=== PATIENT | female | born 1970 | race Caucasian/White ===

== ENCOUNTER 2019-11-01 23:01 | Inpatient (IN) | payer MEDICAID ==
[~2019-11-01] VITALS: Ht 162.6 cm; Wt 113.9 kg
--- NOTE | ~2019-11-01 | ST ---
PATIENT:RENALDO MOTA MEDICAL RECORD: [id number] SEX: F LOCATION:D. D.211 ORDER #: ADMISSION DATE: 11/02/19 AGE OF PATIENT: 49 REFERRING PHYSICIAN: INTERPRETING PHYSICIAN: ROCHELLE MARKHAM MD DATE OF SERVICE: 11/02/2019 LEXISCAN DIRECTED NUCLEAR STRESS TEST PROCEDURE IN DETAIL: The patient was brought into the nuclear stress lab in a stable condition, placed in supine position on the nuclear stress table. The patient had Lexiscan administered per standard protocol. The patient tolerated the procedure without significant side effects. The patient did have 3/10 chest tightness and there was ST segment depressions on the EKG laterally. FINDINGS: The patient had anterior artifact likely secondary to breast attenuation; however, the patient also demonstrated possibility of anterior apical ischemia, mild in intensity and moderate in distribution. The patient's overall ejection fraction was 69%. There is no wall motion abnormalities. IMPRESSION: This is an abnormal stress test. Cannot exclude breast attenuation artifact as an explanation for the ischemia; however, ischemia cannot be excluded. RECOMMENDATIONS: It would be reasonable to go forward with catheter-directed angiography depending on clinical situation. TRANSINT:[id number] Voice Confirmation ID: [id number] DOCUMENT ID: [id number] ROCHELLE MARKHAM MD CC: [id number] DICTATION DATE: 11/02/191910 NOTCHED BLADE LOADER: 11/02/192328 ADM IN [facility] [address] [place] [address]
--- NOTE | ~2019-11-01 | EC ---
PATIENT:RENALDO MOTA DATE OF SERVICE: 11/02/19 SEX: F MEDICAL RECORD: [id number] DATE OF : 74 LOCATION:D. D.211 AGE OF PATIENT: 49 ADMISSION DATE: 11/02/19 REFERRING PHYSICIAN: INTERPRETING PHYSICIAN: ROCHELLE MARKHAM MD ECHOCARDIOGRAM REPORT ECHO CHARGES 4 ECHO COMPLETE Date: 11/02/19 CLINICAL DIAGNOSIS: CP ECHOCARDIOGRAPHIC MEASUREMENTS (adult normal given) AC root (d.<3.7cm) 2.4 cm LV Septum d (<1.2 cm> 0.9 cm Valve Excursion 1.1 cm LV Septum (systole) 1.3 cm Left Atria (s.<4.0cm> 3.2 cm LVPW d(<1.2cm) 0.9 cm RV (d.<2.3cm) 2.9 cm LVPW (sytole) 1.0 cm LV diastole(<5.6CM) 4.9 cm MV E-F(>70mm/sec) cm LV systole 3.9 cm LVOT Diameter 2.2 cm MV exc.(>10mm) cm Est.ejection fraction (50-75%) % DOPPLER: LVIT cm/sec A 63 cm/sec E 103 cm/sec LA cm/sec RVSP 21.0 mmHg LVOT 114 cm/sec AOP1/2T m/s Asc. Ao 136 cm/sec RVOT 66 cm/sec RA cm/sec PA 89 cm/sec AV Gradient Peak 7.4 mmHg AV Mean 4.5 mmHg AV Area 3.3 cm MV Gradient Peak 5.4 mmHg MV Mean 2.0 mmHg MV Area cm COMMENTS: Clinical Administrative Coordinator: Linda HAYDEN Special Diet Cook: 4 Dr. Markham TAPE# PACS Pericardial Effusion N DATE OF SERVICE: 11/02/2019 PROCEDURE: Transthoracic echocardiogram. FINDINGS: Normal left ventricular function, ejection fraction is 55%. Left atrium is normal. Aortic valve is normal. ECHOCARDIOGRAM REPORT [id number] RENALDO MOTA Mitral valve is normal. Tricuspid valve is normal. Right ventricle is normal. Right atrium is normal. Pulmonic valve is normal. TRANSINT:[id number] Voice Confirmation ID: [id number] DOCUMENT ID: [id number] ROCHELLE MARKHAM MD CC: [id number] DICTATION DATE: 11/02/191913 MEAT STRINGER: 11/02/192232 ADM IN [facility] [address] [id number]
--- NOTE | ~2019-11-01 | HEMODYNAMI ---
PATIENT:RENALDO MOTA MEDICAL RECORD: [id number] : 74 [id number] ADMISSION DATE: 11/02/19 Generatedon:11/03/201912:15 Patient name: RENALDO MOTA Patient #: [id number] SSN: [id number] : 1970 Date of study: 11/03/2019 Page: Of Hemodynamic Procedure Report Patient Data Patient Demographics Procedure consent was obtained First Name: RENALDO Gender: Female Last Name: NAKUL : 1970 Patient #: [id number] Age: 49 year(s) Race: SSN: [id number] Additional ID: [id number] Contact details Address: [address] [place] [address] State: [place] City: [facility] [place] Zip code: [address] Admission Admission Data Admission Date: 11/02/2019 Admission Time: 16:43 Admit Source: Emergency Insurance Payor: Medicaid department [facility] #: [id number] Room #: D.2114 Lab Results Lab Result Date: 11/03/2019 Lab Result Time: 4:25 Biochemistry Name Units Result Min Max BUN mg/dl 8 --(*---)-- 7 18 Creatinine mg/dl 0.7 --(*---)-- 0.6 1.3 CBC Name Units Result Min Max Hematocrit % 55.3 --(----)*- 42 54 Hemoglobin g/dl 19 --(----)-* 13.5 17.5 Procedure Procedure Types Cath Procedure Diagnostic Procedure LHC LHC w/Coronaries Procedure Description Procedure Date Procedure Date: 11/03/2019 Procedure Start Time: 12:04 Procedure End Time: 12:13 Procedure Staff Name Function Juan R Lee MD Performing Physician Karma Coreas RT Scrub Dami Soares RT Monitor Bryanna Mo RN Nurse Indication Abnormal stress perfusion study Procedure Data Cath Procedure Fluoroscopy Diagnostic fluoroscopy Total fluoroscopy Time: 1 time: 1 min min Diagnostic fluoroscopy Total fluoroscopy dose: 411 dose: 411 mGy mGy Contrast Material Contrast Material Type Amount (ml) Isovue 300 47 Entry Location Entry Primary Successful Side Size Upsize Upsize Entry Closure Succes sful Closure Location (Fr) 1 (Fr) 2 (Fr) Remarks Device Remarks Femoral Right 5 Fr Exoseal artery Estimated blood loss: 5 ml Diagnostic catheters Device Type Used For End Catheter Placement MULTIPACK JL 4.0 5Fr Procedure catheter MULTIPACK 3DRC 5Fr Procedure catheter MULTIPACK Pigtail 5 Fr Procedure catheter Procedure Complications No complications Procedure Medications Medication Administration Route Dosage Oxygen etCO2 Nasal cannula 2 l/min Lidocaine 2% added to field 20 Heparin Flush Bag added to field 2 bags (1000units/500ml NS) 0.9% NaCl I.V. 100 ml/hr Versed I.V. 2 mg Fentanyl I.V. 100 mcg Versed I.V. 1 mg Fentanyl I.V. 100 mcg Hemodynamics Rest HGB: 19 (g/dl) Heart Rate: 78 (bpm) Pressure Samples Time Site Value (mmHg) Purpose Heart Use Rate(bpm) 12:06 AO 119/44(79) Snapshot 78 12:09 LV 113/27,30 Snapshot 80 12:09 AO 98/51(65) Pullback 80 Gradients Valve Time Site Site 2 Mean SEP/DFP Peak To Heart Use 1 (mmHg) (sec/min) Peak Rate (mmHg) (bpm) Aortic 12:09 LV AO 10 19 80 98/51(65) Calculations Valve P-P Mean Valve Index Valve Source Name Gradient Area Flow (cm2) Aortic 10 10 Snapshots Pre Cath Intra NCS Post Cath Vital Signs Time Heart Resp SPO2 etCO2 NIBP (mmHg) Rhythm Pain Sedation Rate (ipm) (%) (mmHg) Status Level (bpm) 11:59:20 69 12 94 15 120/62(88) NSR 0 (11) 10(A) , No pain 12:04:29 80 15 98 47.5 115/82(106) NSR 0 (11) 10(A) , No pain 12:09:28 81 13 93 14.3 91/55(82) NSR 0 (11) 9(A) , No pain 12:14:17 73 15 89 15.8 116/66(87) NSR 0 (11) 9(A) , No pain Medications Time Medication Route Dose Verified Delivered Reason Notes Eff ectiveness by by 11:58:36 Oxygen etCO2 2 Juan R Buffie used for Nasal l/min [facility] Nasir Mo hydrogen power plant engineer cannula MD 11:58:42 Lidocaine 2% added 20ml Juan R Juan R for local to vial [facility] anesthetic field MD COLLINS 11:58:47 Heparin Flush added 2 Juan R Juan R used for Bag to bags [facility] procedure (1000units/500ml field MD COLLINS NS) 11:58:56 0.9% NaCl I.V. 100 Juan R Buffie Per ml/hr St Nasir Mo RN physician 12:04:06 Versed I.V. 2 mg Juan R Buffie for [facility] Nasir Mo RN sedation 12:04:12 Fentanyl I.V. 100 Juan R Buffie for mcg [facility] Nasir Mo RN sedation 12:07:09 Versed I.V. 1 mg Juan R Buffie for [facility] Nasir Mo RN sedation 12:07:13 Fentanyl I.V. 100 Juan R Buffie for mcg [facility] Nasir Mo RN sedation Procedure Log Time Note 11:22:22 Informed consent obtained and on chart 11:23:02 Procedure Status Urgent Heart Cath (IP). 11:23:04 Time tracking: Regular hours (M-F 7:00 - 5:00) 11:23:07 Plan of Care:Hemodynamics will remain stable., Cardiac rhythm will remain stable., Comfort level will be maintained., Respiratory function will remain adequate., Patient/ family verbilizes understanding of procedure., Procedure tolerated without complication., Recovers from procedure without complications.. 11:23:11 H&P Date Dictated: 11/03/2019 ER History on chart.. 11:36:14 Karma Coreas RT(R) sent for patient. Start room use. 11:47:29 Patient received from Med II to CCL 1 Alert and oriented. Tansferred to table in Supine position. 11:47:30 Warm blankets applied, and connie hugger turned on for patient comfort. 11:47:31 Correct patient and procedure confirmed by team. 11:47:31 ECG and BP/O2 sat monitors applied to patient. 11:58:08 Vital chart was started 11:58:12 Baseline sample Acquired. 11:58:16 Rhythm: sinus rhythm 11:58:18 Full Disclosure recording started 11:58:19 Pre-procedure instructions explained to patient. 11:58:19 Pre-op teaching completed and patient verbalized understanding. 11:58:21 Family unavailable. 11:58:23 Patient NPO since Midnight. 11:58:34 Is the patient allergic to Iodine/contrast media? No. 11:58:36 Oxygen 2 l/min etCO2 Nasal cannula was administered by Bryanna Mo RN; used for procedure; Verbal order read back and verified. 11:58:39 Is patient on blood thinner?No 11:58:41 Patient diabetic? Yes. 11:58:42 Lidocaine 2% 20ml vial added to field was administered by Juan R Lee MD; for local anesthetic; Verbal order read back and verified. 11:58:42 If diabetic: On Metformin? Yes 11:58:47 Heparin Flush Bag (1000units/500ml NS) 2 bags added to field was administered by Juan R Lee MD; used for procedure; Verbal order read back and verified. 11:58:56 0.9% NaCl 100 ml/hr I.V. was administered by Bryanna Mo RN; Per physician; Verbal order read back and verified. 11:59:09 Patient not . Patient has had hysterectomy. 11:59:16 Previous problem with sedation/anesthesia? No ? 11:59:29 Snore? Yes 11:59:39 Sleep apnea? Yes 11:59:40 Deviated septum? No 11:59:41 Opens mouth fully? Yes 11:59:42 Sticks out tongue? Yes 11:59:48 Airway obstruction? Yes asthma 11:59:55 Dentures? No \ 11:59:58 Pre procedure: right dorsailis pedis pulse 2+ Normal; easily identifiable; not easily obliterated 12:00:00 Patient pain scale 3/10 ?. 12:00:04 IV patent on arrival in right forearm with 0.9% NaCl at [facility]. 12:00:48 Lab Result : BUN 8 mg/dl 12:00:48 Lab Result : Creatinine 0.7 mg/dl 12:00:48 Lab Result : Hemoglobin 19 g/dl 12:00:49 Lab Result : Hematocrit 55.3 % 12:00:54 Lab results completed and on chart. 12:01:27 Stress Test: yes; abnormal ? 12:03:36 Risk of Mortality: 1.5% 12:03:40 Risk of blood transfusion: 2.3% 12:03:45 Risk of LEIDY: 3.1% 12:03:49 Right groin area was prepped with chlora-prep and draped in sterile fashion 12:03:49 Alarms reviewed by R. N. 12:03:50 Sharps counted by scrub and verified by R.N. 12:03:52 Physician arrived 12:03:53 --------ALL STOP TIME OUT------ 12:03:53 Final Timeout: patient, procedure, and site verified with staff and physician. All members of the team are in agreement. 12:03:54 Right groin site verified by team. 12:03:58 Fire Safety Assessment: A--An alcohol-based skin anteseptic being used preoperatively., C--Open oxygen or nitrous oxide is being used., D--An ESU, laser, or fiber-optic light is being used. 12:04:01 Physical assessment completed. ASA score P 2 - A patient with mild systemic disease as per Juan R Lee MD. 12:04:06 Versed 2 mg I.V. was administered by Bryanna Mo RN; for sedation; Verbal order read back and verified. 12:04:08 1) 90+ Normal kidney functon but urine findings or structural abnormalities or genetic trait point to kidney disease. 12:04:10 Maximum allowable contrast dose (3.7 X eGFR X 0.75)250 ml. 12:04:12 Fentanyl 100 mcg I.V. was administered by Bryanna Mo RN; for sedation; Verbal order read back and verified. 12:04:12 Sedation plan: IV Moderate Sedation Medication:Versed, Fentanyl 12:04:15 Use device set Femoral Dx 12:04:16 ACIST Syringe (77205) opened to sterile field. 12:04:16 Bag Decanter () opened to sterile field. 12:04:16 Medline Cath Pack ([id number]) opened to sterile field. 12:04:18 ACIST Hand Control (90986) opened to sterile field. 12:04:18 ACIST Manifold (71249) opened to sterile field. 12:04:19 DIAGNOSTIC Multipack 5Fr catheter set (ZV5221) opened to sterile field. 12:04:19 Tegaderm 4 x 4 (1626W) opened to sterile field. 12:04:21 EMERALD Guide Wire (832-367) opened to sterile field. 12:04:24 SHEATH 5FR Isle (YER938) opened to sterile field. 12:04:34 Procedure started. 12:04:36 Local anesthetic to right femoral artery with Lidocaine 2% by Juan R Lee MD.INITIAL ACCESS ONLY 12:04:46 A 5 Fr sheath was inserted into the Right Femoral artery 12:05:15 Admit Source: Emergency department 12:05:19 Zero performed for pressure channel P1 12:05:37 Insurance Payor : Medicaid 12:05:59 Diagnostic Cath Status : Urgent 12:06:06 Indication : Abnormal stress perfusion study 12:06:25 A MULTIPACK JL 4.0 5Fr catheter was advanced over the wire and used for Procedure. 12:06:26 LV hemodynamics recorded. 12:06:29 LCA angiography performed. 12:07:09 Versed 1 mg I.V. was administered by Bryanna Mo RN; for sedation; Verbal order read back and verified. 12:07:13 Fentanyl 100 mcg I.V. was administered by Bryanna Mo RN; for sedation; Verbal order read back and verified. 12:07:16 Catheter exchanged over wire. 12:07:24 A MULTIPACK 3DRC 5Fr catheter was advanced over the wire and used for Procedure. 12:08:07 RCA angiography performed. 12:08:09 Catheter exchanged over wire. 12:08:13 A MULTIPACK Pigtail 5 Fr catheter was advanced over the wire and used for Procedure. 12:08:59 EXOSEAL 5Fr (EX500) opened to sterile field. 12:09:27 Injector settings: Ml/sec: 10, Volume: 20, 12:09:31 EF : 55 % 12:09:33 LV gram done using DREW 12:09:34 Catheter removed. 12:09:41 Sheath removed intact; hemostasis achieved with Exoseal to the Right Femoral artery. 12:09:42 Procedure ended.(Physican Out) 12:11:47 Fluoroscopy time 01.00 minutes. 12:11:51 Fluoroscopy dose: 411 mGy 12:11:51 Flurop Dose total: 411 12:11:59 Dose Area Product 94764 mGy/cm. 12:12:03 Contrast amount:Isovue 300 47ml. 12:12:05 Maximum allowable dose exceeded? No. 12:12:06 Sharps counted by scrub and verified by R.N. 12:12:07 Insertion/operative site no bleeding no hematoma. 12:12:10 Post-op/insertion site Right Femoral artery dressed using a 4 x 4 and Tegaderm. 12:12:14 Post right femoral artery:stable, soft, clean and dry 12:12:16 Post Procedure Pulses reassessed and unchanged 12:12:18 Post procedure: right dorsailis pedis pulse 2+ Normal; easily identifiable; not easily obliterated. 12:12:20 Post-procedure physical assessment completed. ASA score P 2 - A patient with mild systemic disease as per Juan R Lee MD. 12:12:22 Post procedure rhythm: unchanged. 12:12:24 Estimated blood loss: 5 ml 12:12:25 Post procedure instruction explained to patient.Patient verbalizes understanding. 12:12:25 Patient needs reinforcement of post procedure teaching. 12:12:57 Procedure and supply charges have been captured, reviewed, submitted and are correct. 12:12:58 Procedure Complication : No complications 12:13:01 Vital chart was stopped 12:13:07 Operative report dictated upon procedure completion. 12:13:08 See physician's report for complete and final results. 12:13:12 Report given to PCU. 12:13:13 Patient transfered to PCU with Stretcher. 12:13:15 Procedure ended. 12:13:15 Full Disclosure recording stopped 12:13:20 End room use (Document Last) 12:14:50 Karma Coreas RT(R) was relieved by Dami Soares RT(R) as monitoring person Device Usage Item Name Manufacture Quantity Catalog Hospital Part Current Minimal L ot# / Number Charge Number Stock Stock Serial# Code ACIST Acist 1 91005 [id number] 576696 667519 20 Syringe Medical (44870) Systems Inc Bag Microtek 1 2001S 107347 47167 802466 5 Decanter Medical Inc. () Medline Medline 1 [id number] 093186 65599 533632 5 Cath Pack ([id number]) ACIST Hand Acist 1 12871 244727 034306 221590 5 Control Medical (50359) Systems Inc ACIST Acist 1 39029 877212 415325 231894 5 Manifold Medical (27419) Systems Inc DIAGNOSTIC Cardinal 1 [id number] 620248 95429 166180 30 [facility] Ansible 5Fr catheter set (FD0787) Tegaderm 4 3M 1 1626W 434559 326164 299014 5 x 4 (1626W) EMERALD Cardinal 1 502-455 191441 141724 529513 5 Guide Wire Health (502-455) SHEATH 5FR Terumo 1 CNV318 024775 794860 203691 5 Isle (EBV217) MULTIPACK Cardinal 1 366865 5 JL 4.0 5Fr Health catheter MULTIPACK Cardinal 1 995090 5 3DRC 5Fr Health catheter MULTIPACK Cardinal 1 187854 5 Pigtail 5 Health Fr catheter EXOSEAL 5Fr Cardinal 1 EX500 596839 288084 210798 10 (EX500) Health Signature Audit [place] Stage Time Signature Unsigned Intra-Procedure 11/03/2019 Bryanna Mo RN 12:14:41 PM Intra-Procedure 11/03/2019 Dami Soares 12:14:59 PM RT(R); Juan R Lee MD [facility] [address] [place] [address]
[2019-11-01] MEDS ORDERED: GLUCOPHAGE1000 MG PO (23:22)
[2019-11-01] MEDS ORDERED: LIPITOR10 MG PO (23:22)
[2019-11-01] MEDS ORDERED: LISINOPRIL2.5 MG PO (23:22)
[2019-11-01] MEDS ORDERED: COREG12.5 MG PO (23:22)
[2019-11-01] MEDS ORDERED: OMEPRAZOLE20 M1 PO (23:23)
[2019-11-01] MEDS ORDERED: ALBUTEROL SULF8.5 GM INH (23:23)
[2019-11-01] MEDS ORDERED: WELLBUTRIN XL150 M1 PO (23:23)
[2019-11-01] MEDS ORDERED: IMITREX50 MG PO (23:24)
[2019-11-01 23:26] LABS: HEMOGLOBIN 13.9 g/dL (12-16); MCH 31.3 pg (26.0-34.0); MCHC 33.9 g/dL (31.0-37.0); MCV 92.3 fL (80.0-100.0); MEAN PLATELET VOLUME 10.5 fL (7.4-10.4); NEUTROPHILS 62.4 % (40-80); PLATELET COUNT 201 10x3/uL (130-400); RBC 4.44 10x6/uL (4.00-5.40); RDW 12.9 % (11.5-14.5); WBC 8.3 10x3/uL (4.8-10.8)
[2019-11-01 23:33] LABS: CALC OSMOLALITY 278 mosm/kg (275-300); CALCIUM 8.7 mg/dL (8.5-10.1); CARBON DIOXIDE 26.1 mmol/L (21.0-32.0); CHLORIDE - SERUM 103 mmol/L (98-107); GLUCOSE 202 mg/dL (74-106); POTASSIUM - SERUM 3.7 mmol/L (3.5-5.1); SODIUM 137 mmol/L (136-145); UREA NITROGEN 9 mg/dL (7-18); eGFR NON AFRICAN AMERICAN 63 mL/min (90-120)
[2019-11-01 23:34] LABS: APTT 26.1 SECONDS (22.8-39.4); INR 1.03 (0.85-1.17); PROTIME 13.5 SECONDS (11.6-15.0)
[2019-11-02 00:18] LABS: ALBUMIN 3.3 g/dL (3.4-5.0); ALKALINE PHOSPHATASE 98 U/L (30-120); ALT (SGPT) 49 U/L (10-68); AMYLASE - SERUM 27 U/L (25-115); BILIRUBIN - TOTAL 0.64 mg/dL (0.2-1.3); CKMB 0.9 U/L (0.0-3.6); CREATINE KINASE 74 UL (21-215); LIPASE 156 U/L (73-393); MAGNESIUM - SERUM 1.6 mg/dL (1.8-2.4); PROTEIN - SERUM 6.9 g/dL (6.4-8.2); TROPONIN-I < 0.017 ng/mL (0.000-0.060)
[2019-11-02 01:43] VITALS: BP 128/82
--- NOTE | 2019-11-02 02:02 | NUR ---
PT TO ROOM 2114 VIA STRETCHER ACCOMPANIED BY HOSPITAL STAFF. AMBULATED WITHOUT ASSISTANCE FROM STRETCHER TO BED.
--- NOTE | 2019-11-02 03:45 | NUR ---
ASSESSMENT COMPLETED, EKG COMPLETED, TELEMETRY PLACED. PT REQUESTING TO REMOVE NITRO PATCH ON CHEST, STATES "DR. GONZALEZ SAID THAT THE NITRO SHOULD HELP WITH THE DISCOMFORT, BUT IF IT DIDN'T TO LET YOU KNOW AND I WOULD BE ABLE TO GET MORPHINE FOR THE PAIN." EXPLAINED TO PT HOW THE NITRO PATCH WAS WORKING IN HER BODY AND THE IMPORTANCE OF IT IF SHE WAS HAVING A HEART ISSUE, VERBALIZED UNDERSTANDING. BED IN LOWEST POSITION, SR X1, CALL LIGHT WITHIN REACH. WILL CONTINUE TO MONITOR.
[2019-11-02 03:52] VITALS: BP 101/64; BMI 43.2
--- NOTE | 2019-11-02 04:30 | NUR ---
PT REQUESTING PRN MORPHINE FOR CHEST PAIN OF 8, ON A SCALE OF 0-10, STATES "IT FEELS LIKE PRESSURE ON MY CHEST AND IT RADIATES TO MY BACK, BETWEEN MY SHOULDER BLADES AND IS STABBING." THIS NURSE ATTEMPTED TO ADMINISTER PRN MORPHINE, PT STATES, "I DON'T WANT IT UNLESS I CAN GET PHENERGAN." EXPLAINED TO PT THE PHENERGAN SHE RECEIVED IN ER WAS A ONE-TIME DOSE AND WILL REPORT TO ONCOMING NURSE. BED IN LOWEST POSITION, SR X1, CALL LIGHT WITHIN REACH. WILL CONTINUE TO MONITOR.
[2019-11-02 05:25] LABS: CKMB 0.6 U/L (0.0-3.6); CREATINE KINASE 53 UL (21-215); TROPONIN-I < 0.017 ng/mL (0.000-0.060)
[2019-11-02 07:30] VITALS: BP 114/75
--- NOTE | 2019-11-02 07:45 | NUR ---
ICE PACK PROVIDED FOR COMPLAINTS OF HEADACHE. CALL PLACED TO NODULIZER REQUESTING PHENERGAN AND FSBS. AWAITING CALL BACK.
--- NOTE | 2019-11-02 08:52 | NUR ---
MEDICATED FOR NAUSEA WITH PHENERGAN IM. FSBS 163. NO COVERAGE PT IS NPO.
--- NOTE | 2019-11-02 09:44 | NUR ---
PATIENT CONTINUES TO COMPLAIN OF NAUSEA. CALL LIGHT WITHIN REACH. NO DISTRESS.
[2019-11-02 10:20] LABS: CKMB 0.6 U/L (0.0-3.6); CREATINE KINASE 54 UL (21-215)
[2019-11-02 10:21] LABS: TROPONIN-I < 0.017 ng/mL (0.000-0.060)
--- NOTE | 2019-11-02 11:56 | NUR ---
RETURNED FROM CARDIAC STRESS TEST. NO DISTRESS.
--- NOTE | 2019-11-02 12:22 | NUR ---
FSBS 185. 2 UNITS HUMULIN ADMINISTERED PER SLIDING SCALE. NO DISTRESS.
--- NOTE | 2019-11-02 13:24 | NUR ---
PATIENT CONTINUES TO COMPLAIN OF A HEADACHE AND NECK PAIN, DENIES ANY TYPE OF CHEST PAIN. AWAITING FOR TO MAKE ROUNDS ON UNIT PER THEA RANDLE.
--- NOTE | 2019-11-02 13:26 | NUR ---
PATIENT STATES THAT SHE USES MUSCLE RELAXERS AT HOME BUT HAS NOT GIVEN HER A PRESCRIPTION FOR THOSE. WILL NOTIFY WHEN HE COMES ON UNIT MUSCLE TENSION IN NECK COULD BE CAUSING NECK PAIN AND HEADACHE.
[2019-11-02 14:06] VITALS: BP 114/76
[2019-11-02 14:20] LABS: BILIRUBIN NEGATIVE (NEGATIVE); GLUCOSE 1000 mg/dL (NEGATIVE); KETONE NEGATIVE (NEGATIVE); NITRITE NEGATIVE (NEGATIVE); SPECIFIC GRAVITY 1.005 (1.005-1.020); UROBILINOGEN NORMAL (NORMAL)
[2019-11-02 14:45] LABS: UDS - AMPHET NEGATIVE QUAL (NEGATIVE); UDS - BARB NEGATIVE QUAL (NEGATIVE); UDS - BENZO NEGATIVE QUAL (NEGATIVE); UDS - COCAINE NEGATIVE QUAL (NEGATIVE); UDS - OPIATE NEGATIVE QUAL (NEGATIVE); UDS - PCP NEGATIVE QUAL (NEGATIVE); UDS - THC NEGATIVE QUAL (NEGATIVE)
--- NOTE | 2019-11-02 15:50 | NUR ---
NEW ORDER RECEIVED FOR TRAMADOL 50MG PO EVERY 6 HOURS. THIS IS WHAT PATIENT IS USED TO TAKING FOR NECK PAIN AT HOME AND PATIENT PRODUCED CURRENT BOTTLE OF MEDICATION THAT HAS PRESCRIBED FOR HER ON 10/27/19. ORDER PLACED IN COMPUTER.
--- NOTE | 2019-11-02 16:26 | NUR ---
MEDICATED FOR PAIN AT THIS TIME. NO DISTRESS.
--- NOTE | 2019-11-02 16:26 | NUR ---
FSBS 161. 2 UNITS HUMULIN ADMINISTERED PER SLIDING SCALE. NO DISTRESS.
--- NOTE | 2019-11-02 16:28 | NUR ---
NICKY FROM [facility] CALLED AND WILL COME DO A FACE TO FACE WITH THE PATIENT SINCE HE HAD HOSPICE IN THE PAST AND FAMILY WILL GATHER TOGETHER AND SIGN LEGALS IN AM WITH HOSPICE. IT WILL BE IN THE AM BEFORE HOSPICE ADMITS THE PATIENT. THANKED NICKY. [phone] NICKY CELLPHONE.
[2019-11-02 20:00] VITALS: BP 118/75
--- NOTE | 2019-11-02 20:01 | NUR ---
REPORT RECIEVED AND INITIAL ROUNDS COMPLETED. PT RESTING IN BED. NO DISTRESS. CPOC. CALL LIGHT IN REACH.
[2019-11-03] VITALS: BP 117/75
[2019-11-03 04:00] VITALS: BP 110/71
--- NOTE | 2019-11-03 04:49 | NUR ---
PT TAKING A SHOWER FOR NOW. NO FURTHER C/O NAUSEA OR PAIN OR DISCOMFORT. CPOC.
[2019-11-03 05:08] LABS: BASOPHILS 0.5 % (0-2); EOSINOPHILS 2.7 % (0-7); IMMATURE GRANULOCYTES 0.2 % (0-5); MCH 32.4 pg (26.0-34.0); MCHC 34.4 g/dL (31.0-37.0); MEAN PLATELET VOLUME 11.5 fL (7.4-10.4); MONOCYTES 5.7 % (2-11); NEUTROPHILS 51.9 % (40-80); RDW 12.8 % (11.5-14.5)
[2019-11-03 05:10] LABS: HEMATOCRIT 55.3 % (36.0-48.0); MCV 94.4 fL (80.0-100.0); PLATELET COUNT 95 10x3/uL (130-400); RBC 5.86 10x6/uL (4.00-5.40)
[2019-11-03 05:11] LABS: PLATELET ESTIMATE DECREASED
[2019-11-03 05:15] LABS: CALC OSMOLALITY 282 mosm/kg (275-300); CALCIUM 8.2 mg/dL (8.5-10.1); CARBON DIOXIDE 28.2 mmol/L (21.0-32.0); CHLORIDE - SERUM 103 mmol/L (98-107); CREATININE - SERUM 0.7 mg/dL (0.6-1.3); GLUCOSE 174 mg/dL (74-106); POTASSIUM - SERUM 4.1 mmol/L (3.5-5.1); SODIUM 141 mmol/L (136-145); UREA NITROGEN 8 mg/dL (7-18); eGFR NON AFRICAN AMERICAN > 90 mL/min (90-120)
--- NOTE | 2019-11-03 05:49 | NUR ---
PT UP TO SHOWER FOR POSSIBLE HEART CATH TODAY. BACK TO BED WITH C/O PAIN AND NAUSEA. MEDICATED WITH MORPHINE IV AND PHENERGAN IM. 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
--- NOTE | 2019-11-03 07:15 | NUR ---
RECEIVED PT IN BED AAOX4 RESP UNLABORED SKIN W/D COLOR WNL DENIES ANY PAIN OR NEEDS AT THIS TIME
[2019-11-03 08:26] LABS: CHOL - HDL RATIO 3.7 ratio (2.3-4.1); LDL-HDL RATIO 2.2 ratio (1.5-3.5)
[2019-11-03 10:14] VITALS: BP 99/63
[2019-11-03 12:55] VITALS: Ht 162.6 cm; Wt 113.9 kg
--- NOTE | 2019-11-03 13:00 | NUR ---
PT STATED NO ONE CALLED HER BROTHER TO REPORT RESULT OF HEART CATH AND NO ONE TOLD HER ANYTHING I TOLD HER IT WAS REPORTED TO ME IN REPORT DR SALGADO WAS CALLING HER BROTHER AT THAT TIME SHE SAID THAT WAS ABSOLUTLY NOT TRUE SHE WAS THE ONLY ONE THAT HAD CALLED HIM ALL DAY I REQUESTED HIS PHONE NUMBER SO DR SALGADO COULD BE CONTACTED SHE STATED WHY I'VE ALREADY TALKED TO HIM NO NEED NOW. I DID EXPLAIN HER HEART CATHERIZATION WAS CLEAN NO BLOCKAGES SHE STATED UNDERSTANDING
--- NOTE | 2019-11-03 13:14 | NUR ---
PT REQUESTED A CLIENT DIRECTOR SALAD TO EAT STATED I WOULD GET IT ORDERED
--- NOTE | 2019-11-03 13:30 | NUR ---
CALLED DR SALGADO AT OFFICE LEFT ESDRAS ON HIS NURSES VOICE MAIL RECEIVED DISCHARGE INSTRUCTIONS FROM NICO TOM APN
--- NOTE | 2019-11-03 14:15 | NUR ---
WENT IN PT ROOM WHITE SUGAR SYRUP OPERATOR SALAD WAS DELIVERED PT STATE SH CAN'T EAT SALAD SHE HAS GASTROPHERISES I REMINDED HER SHE HAD ASKED FOR IT REORDERED SANDWICH TRAY
[2019-11-03] MEDS ORDERED: GLUCOTROL XL 5 M5 MG PO (14:19)
[2019-11-03] MEDS ORDERED: PHENERGAN25 M1 PO (15:26)
--- NOTE | 2019-11-03 16:15 | NUR ---
REVIWED DISCHARGE INSTRUCTIONS WITH PT STATES UNDERSTANDING STATES SHE DOESN'T UNDERSTAND WHY THE DOCTOR DIDN'T CALL HER BROTHER OR TELL HER WHAT WAS GOING ON TOLD HER I WOULD GET GET CARDIOLOGY TO SPEAK WITH HER MILAD RANDLE WAS ON UNIT PT STATED NO MY SON S ON HIS WAY TO PICK HER UP AND SHE IS READY TO GO HOME COPY OF DISCHARGE INSTRUCTIONS GIVEN MEDS CALLED TO [facility] ESCORTED PT TO ER EXIT FOR DISCHARGE IN STABLE CONDITION WITH ALL PERSONAL BELONGINGS PT REFUSED TO GO IN W/C
--- NOTE | 2019-11-04 07:19 | MORECARE ---
CASE MANAGEMENT DISCHARGE SUMMARY PATIENT: RENALDO MOTA UNIT: [id number] ADM DATE: 11/02/19 AGE: 49 : 74 SEX: F ROOM/BED: D.3464 AUTHOR: ROSALINDA SNOWDEN PHYSICIAN: REFERRING PHYSICIAN: AYE PERALES MD DATE OF SERVICE: 11/04/19 Discharge Plan Patient Name: RENALDO MOTA [facility] [facility] 1970 Planned Disposition: Anticipated Discharge Date: Discharge Date: 11/03/2019 Expected LOS: 0 Initial Reviewer: [email or web address] Initial Review Date: 11/04/2019 Generated: 11/04/19 8:18 am Patient Name: RENALDO MOTA Page [id number] at 0719 All edits/amendments must be made on the electronic document DICTATION DATE: 11/04/19717 DIRECTOR OF VENDOR MANAGEMENT: PATTY 11/04/19717 RPT#: [id number] DC DATE:11/03/19 STATUS: DIS IN [facility] [address] [place] [address] END OF REPORT
--- NOTE | 2019-11-04 08:35 | OP ---
PATIENT NAME: RENALDO MOTA MEDICAL RECORD: [id number] :74 LOCATION:D.M2 D.2114 ADMISSION DATE:11/02/19 SURGEON: LUH SALGADO MD DATE OF OPERATION: 11/03/2019 PROCEDURE: Left heart catheterization, selective coronary angiography, right femoral artery approach. CATHETERS: A 5-Moldovan sheath, 5/4 left and right Salvador, 5/4 pig. The procedure was well tolerated. The patient returned to ross, sheath removed. ExoSeal device placed. FINDINGS: Left ventriculography in 30-degree DREW view: Normal wall motion and normal systolic function. CORONARY ANATOMY: LEFT MAIN: Left main is free of disease. LAD: LAD is free of disease in the diagonal system. CIRCUMFLEX: Free of disease in the marginal system. RIGHT CORONARY ARTERY: Dominant artery, gives rise to PDA, free of disease. IMPRESSION: Normal left ventricular systolic function, normal coronary anatomy. TRANSINT:[id number] Voice Confirmation ID: [id number] DOCUMENT ID: [id number] LUH SALGADO MD at 0835 CC: [id number] DICTATION DATE: 11/03/19 1218 SUPERVISOR TYPE PHOTOGRAPHY: 11/03/19 2253 DIS IN 11/03/19 [id number] [place] [address]
== END 2019-11-03 16:15 | disposition home or self-care (01) | DRG 287 ==
LOC: D.ER 23:01 → D.M2 11-02 00:40 → OBSVTIME 11-02 00:40 → D.M2 11-02 16:43
PROVIDERS: Emergency Medicine; Internal Medicine Interventional Cardiology; ADMIT Internal Medicine Nephrology; ATTEND Internal Medicine Nephrology
PROC: B2151ZZ Fluoroscopy of Left Heart using Low Osmolar Contrast (ICD-10-PCS; 2019-11-03)
PROC: 4A023N7 Measurement of Cardiac Sampling and Pressure, Left Heart, Percutaneous Approach (ICD-10-PCS; 2019-11-03)
PROC: B2111ZZ Fluoroscopy of Multiple Coronary Arteries using Low Osmolar Contrast (ICD-10-PCS; principal; 2019-11-03 11:36)
DX: I20.8 Other forms of angina pectoris (principal); Z68.41 Body mass index [BMI] 40.0-44.9, adult; I10 Essential (primary) hypertension; E78.5 Hyperlipidemia, unspecified; E66.01 Morbid (severe) obesity due to excess calories; E11.43 Type 2 diabetes mellitus with diabetic autonomic (poly)neuropathy; K31.84 Gastroparesis; F41.8 Other specified anxiety disorders; L40.9 Psoriasis, unspecified; K58.9 Irritable bowel syndrome, unspecified

== ENCOUNTER 2019-11-04 20:24 | Emergency (ER) | payer MEDICAID ==
[~2019-11-04 20:24] MED LIST: ALBUTEROL SULF8.5 GM INH; COREG12.5 MG PO; GLUCOPHAGE1000 MG PO; GLUCOTROL XL 5 M5 MG PO; IMITREX50 MG PO; LIPITOR10 MG PO; LISINOPRIL2.5 MG PO; OMEPRAZOLE20 M1 PO; PHENERGAN25 M1 PO; WELLBUTRIN XL150 M1 PO
[2019-11-04 20:33] VITALS: Ht 162.6 cm
[2019-11-04 21:22] LABS: BASOPHILS 0.5 % (0-2); EOSINOPHILS 2.3 % (0-7); IMMATURE GRANULOCYTES 0.2 % (0-5); MCH 31.9 pg (26.0-34.0); MCHC 34.1 g/dL (31.0-37.0); MCV 93.6 fL (80.0-100.0); MEAN PLATELET VOLUME 11.1 fL (7.4-10.4); MONOCYTES 7.6 % (2-11); NEUTROPHILS 53.4 % (40-80); RDW 12.6 % (11.5-14.5)
[2019-11-04 21:29] LABS: APTT 24.9 SECONDS (22.8-39.4); HEMATOCRIT 40.8 % (36.0-48.0); HEMOGLOBIN 13.9 g/dL (12-16); INR 0.95 (0.85-1.17); PLATELET COUNT 217 10x3/uL (130-400); PROTIME 12.6 SECONDS (11.6-15.0); RBC 4.36 10x6/uL (4.00-5.40); WBC 6.1 10x3/uL (4.8-10.8)
[2019-11-04 21:30] LABS: D-DIMER-QUANTITATIVE 0.35 ug/mLFEU (0.20-0.54)
[2019-11-04 22:13] LABS: CALC OSMOLALITY 282 mosm/kg (275-300); CALCIUM 8.6 mg/dL (8.5-10.1); CARBON DIOXIDE 29.8 mmol/L (21.0-32.0); CHLORIDE - SERUM 103 mmol/L (98-107); GLUCOSE 181 mg/dL (74-106); SODIUM 140 mmol/L (136-145); UREA NITROGEN 9 mg/dL (7-18)
[2019-11-04 22:14] LABS: CREATININE - SERUM 0.5 mg/dL (0.6-1.3); eGFR NON AFRICAN AMERICAN > 90 mL/min (90-120)
[2019-11-04 22:29] LABS: ALBUMIN 3.1 g/dL (3.4-5.0); ALKALINE PHOSPHATASE 92 U/L (30-120); ALT (SGPT) 50 U/L (10-68); BILIRUBIN - TOTAL 0.77 mg/dL (0.2-1.3); CKMB 0.3 U/L (0.0-3.6); CREATINE KINASE 115 UL (21-215); MAGNESIUM - SERUM 1.7 mg/dL (1.8-2.4); PROTEIN - SERUM 6.5 g/dL (6.4-8.2); TROPONIN-I < 0.017 ng/mL (0.000-0.060)
[2019-11-04 23:24] VITALS: BP 120/86
== END 2019-11-04 23:24 | disposition home or self-care (01) ==
LOC: D.ER 20:24
PROVIDERS: Family Medicine
DX: R07.9 Chest pain, unspecified (principal); E11.9 Type 2 diabetes mellitus without complications; I10 Essential (primary) hypertension; J45.909 Unspecified asthma, uncomplicated; K21.9 Gastro-esophageal reflux disease without esophagitis; Z79.84 Long term (current) use of oral hypoglycemic drugs

== ENCOUNTER 2020-01-03 21:10 | Emergency (ER) | payer MEDICAID ==
[~2020-01-03] VITALS: Ht 162.6 cm; Wt 109.1 kg
[2020-01-03 21:23] VITALS: Ht 162.6 cm; Wt 109.1 kg
[2020-01-03] MEDS ORDERED: VICTOZA0.6 MG/0.1 SQ (22:26)
[2020-01-03] MEDS ORDERED: LEXAPRO20 MG PO (22:27)
[2020-01-03 23:04] LABS: BASOPHILS 0.2 % (0-2); EOSINOPHILS 1.6 % (0-7); HEMATOCRIT 42.8 % (36.0-48.0); HEMOGLOBIN 14.5 g/dL (12-16); IMMATURE GRANULOCYTES 0.2 % (0-5); LYMPHOCYTES 30.3 % (15-50); MCH 32.3 pg (26.0-34.0); MCHC 33.9 g/dL (31.0-37.0); MCV 95.3 fL (80.0-100.0); MEAN PLATELET VOLUME 10.5 fL (7.4-10.4); MONOCYTES 5.3 % (2-11); NEUTROPHILS 62.4 % (40-80); PLATELET COUNT 190 10x3/uL (130-400); RBC 4.49 10x6/uL (4.00-5.40); RDW 12.9 % (11.5-14.5); WBC 8.5 10x3/uL (4.8-10.8)
[2020-01-03 23:16] LABS: ANION GAP 7.5 mmol/L (8-16); CALCIUM 8.9 mg/dL (8.5-10.1); CARBON DIOXIDE 29.3 mmol/L (21.0-32.0); POTASSIUM - SERUM 3.8 mmol/L (3.5-5.1)
[2020-01-03 23:20] LABS: ALBUMIN 3.4 g/dL (3.4-5.0); BILIRUBIN - TOTAL 0.77 mg/dL (0.2-1.3); PROTEIN - SERUM 6.9 g/dL (6.4-8.2)
[2020-01-03 23:54] LABS: BILIRUBIN NEGATIVE (NEGATIVE); GLUCOSE NEGATIVE (NEGATIVE); KETONE NEGATIVE (NEGATIVE); NITRITE NEGATIVE (NEGATIVE); UROBILINOGEN NORMAL (NORMAL)
[2020-01-04] MEDS ORDERED: PHENERGAN25 M1 PO (01:46)
[2020-01-04 02:01] VITALS: BP 123/74
== END 2020-01-04 02:02 | disposition home or self-care (01) ==
LOC: D.ER 21:10
PROVIDERS: Emergency Medicine
DX: K52.29 Other allergic and dietetic gastroenteritis and colitis (principal); R10.9 Unspecified abdominal pain; E11.9 Type 2 diabetes mellitus without complications; I10 Essential (primary) hypertension; K21.9 Gastro-esophageal reflux disease without esophagitis; Z79.84 Long term (current) use of oral hypoglycemic drugs; R11.2 Nausea with vomiting, unspecified; R51 Headache

== ENCOUNTER 2020-02-15 16:18 | Emergency (ER) | payer MEDICAID ==
[~2020-02-15] VITALS: Ht 162.6 cm; Wt 107.0 kg
[~2020-02-15 16:18] MED LIST changes: +LEXAPRO20 MG PO; +VICTOZA0.6 MG/0.1 SQ
[2020-02-15 16:20] VITALS: Ht 162.6 cm; Wt 107.0 kg
[2020-02-15] MEDS ORDERED: ULTRAM50 MG PO (16:26)
[2020-02-15 17:34] LABS: BILIRUBIN NEGATIVE (NEGATIVE); GLUCOSE 250 mg/dL (NEGATIVE); KETONE NEGATIVE (NEGATIVE); NITRITE NEGATIVE (NEGATIVE); UROBILINOGEN NORMAL (NORMAL)
[2020-02-15 17:37] LABS: RED CELLS - URINE 0-5 /hpf (0-5)
[2020-02-15 17:38] LABS: BACTERIA MODERATE /hpf (NEGATIVE)
[2020-02-15 17:48] LABS: BASOPHILS 0.4 % (0-2); EOSINOPHILS 2.1 % (0-7); HEMATOCRIT 42.3 % (36.0-48.0); HEMOGLOBIN 14.5 g/dL (12-16); IMMATURE GRANULOCYTES 0.1 % (0-5); LYMPHOCYTES 25.7 % (15-50); MCH 32.8 pg (26.0-34.0); MCHC 34.3 g/dL (31.0-37.0); MCV 95.7 fL (80.0-100.0); MEAN PLATELET VOLUME 10.4 fL (7.4-10.4); MONOCYTES 6.3 % (2-11); NEUTROPHILS 65.4 % (40-80); PLATELET COUNT 168 10x3/uL (130-400); RBC 4.42 10x6/uL (4.00-5.40); RDW 13.3 % (11.5-14.5)
[2020-02-15 18:03] LABS: CALC OSMOLALITY 280 mosm/kg (275-300); CALCIUM 8.4 mg/dL (8.5-10.1); CARBON DIOXIDE 28.5 mmol/L (21.0-32.0); CHLORIDE - SERUM 105 mmol/L (98-107); CREATININE - SERUM 0.8 mg/dL (0.6-1.3); POTASSIUM - SERUM 3.6 mmol/L (3.5-5.1); SODIUM 142 mmol/L (136-145); UREA NITROGEN 7 mg/dL (7-18); eGFR NON AFRICAN AMERICAN 81 mL/min (90-120)
[2020-02-15 18:04] LABS: GLUCOSE 106 mg/dL (74-106)
[2020-02-15 18:09] LABS: ALBUMIN 3.6 g/dL (3.4-5.0); ALKALINE PHOSPHATASE 94 U/L (30-120); ALT (SGPT) 40 U/L (10-68); BILIRUBIN - TOTAL 0.89 mg/dL (0.2-1.3)
[2020-02-15] MEDS ORDERED: DIFLUCAN150 MG PO (19:02)
[2020-02-15] MEDS ORDERED: MACROBID100 MG PO (19:02)
[2020-02-15 19:35] VITALS: BP 132/81
== END 2020-02-15 19:36 | disposition home or self-care (01) ==
LOC: D.ER 16:18
PROVIDERS: Family Medicine
DX: N39.0 Urinary tract infection, site not specified (principal); R51 Headache; E11.9 Type 2 diabetes mellitus without complications; I10 Essential (primary) hypertension; J45.909 Unspecified asthma, uncomplicated; K21.9 Gastro-esophageal reflux disease without esophagitis; M54.2 Cervicalgia

== ENCOUNTER 2020-03-06 16:04 | Emergency (ER) | payer MEDICAID ==
[~2020-03-06] VITALS: Ht 162.6 cm; Wt 105.5 kg
[~2020-03-06 16:04] MED LIST changes: +DIFLUCAN150 MG PO; +MACROBID100 MG PO; +ULTRAM50 MG PO
[2020-03-06 16:39] VITALS: Ht 162.6 cm; Wt 105.5 kg
[2020-03-06 18:11] LABS: BASOPHILS 0.3 % (0-2); EOSINOPHILS 2.1 % (0-7); HEMATOCRIT 42.8 % (36.0-48.0); HEMOGLOBIN 14.8 g/dL (12-16); IMMATURE GRANULOCYTES 0.1 % (0-5); MCHC 34.6 g/dL (31.0-37.0); MCV 95.5 fL (80.0-100.0); MEAN PLATELET VOLUME 10.4 fL (7.4-10.4); MONOCYTES 7.6 % (2-11); NEUTROPHILS 50.9 % (40-80); RBC 4.48 10x6/uL (4.00-5.40); RDW 13.1 % (11.5-14.5); WBC 7.5 10x3/uL (4.8-10.8)
[2020-03-06 18:12] LABS: PLATELET COUNT 212 10x3/uL (130-400)
[2020-03-06 18:24] LABS: CALC OSMOLALITY 277 mosm/kg (275-300); CALCIUM 8.9 mg/dL (8.5-10.1); CARBON DIOXIDE 31.1 mmol/L (21.0-32.0); CHLORIDE - SERUM 103 mmol/L (98-107); CREATININE - SERUM 0.8 mg/dL (0.6-1.3); GLUCOSE 89 mg/dL (74-106); POTASSIUM - SERUM 3.6 mmol/L (3.5-5.1); SODIUM 141 mmol/L (136-145); UREA NITROGEN 8 mg/dL (7-18); eGFR NON AFRICAN AMERICAN 81 mL/min (90-120)
[2020-03-06 18:29] LABS: ALBUMIN 3.5 g/dL (3.4-5.0); ALKALINE PHOSPHATASE 94 U/L (30-120); ALT (SGPT) 52 U/L (10-68); BILIRUBIN - TOTAL 1.32 mg/dL (0.2-1.3); PROTEIN - SERUM 7.2 g/dL (6.4-8.2)
[2020-03-06] MEDS ORDERED: DICLOFENAC SODI50 MG PO (18:43)
[2020-03-06 19:13] VITALS: BP 131/80
== END 2020-03-06 19:14 | disposition home or self-care (01) ==
LOC: D.ER 16:04
PROVIDERS: Family Medicine
DX: G44.209 Tension-type headache, unspecified, not intractable (principal); M62.838 Other muscle spasm; E11.9 Type 2 diabetes mellitus without complications; I10 Essential (primary) hypertension; J45.909 Unspecified asthma, uncomplicated; K21.9 Gastro-esophageal reflux disease without esophagitis; Z79.84 Long term (current) use of oral hypoglycemic drugs; M54.2 Cervicalgia

== ENCOUNTER 2020-10-14 05:44 | Observation (INO) | payer MEDICAID ==
[~2020-10-14] VITALS: Ht 162.6 cm; Wt 108.9 kg
[~2020-10-14 05:44] MED LIST changes: +DICLOFENAC SODI50 MG PO; +KLONOPIN0.5 MG PO; +MORPHINE IMMEDI15 MG PO
[2020-10-14] MEDS ORDERED: GLUCOPHAGE500 MG PO (05:54)
[2020-10-14 08:28] LABS: UDS - AMPHET NEGATIVE QUAL (NEGATIVE); UDS - BARB NEGATIVE QUAL (NEGATIVE); UDS - BENZO NEGATIVE QUAL (NEGATIVE); UDS - COCAINE NEGATIVE QUAL (NEGATIVE); UDS - OPIATE POSITIVE QUAL (NEGATIVE); UDS - PCP NEGATIVE QUAL (NEGATIVE); UDS - THC POSITIVE QUAL (NEGATIVE)
[2020-10-14 08:31] LABS: BILIRUBIN NEGATIVE (NEGATIVE); KETONE NEGATIVE (NEGATIVE); NITRITE NEGATIVE (NEGATIVE); UROBILINOGEN NORMAL mg/dL (< 2)
[2020-10-14 08:40] LABS: CALC OSMOLALITY 280 mosm/kg (275-300); CHLORIDE - SERUM 103 mmol/L (98-107); CREATININE - SERUM 0.6 mg/dL (0.6-1.3); GLUCOSE 143 mg/dL (74-106); HCG SERUM NEGATIVE (NEGATIVE); POTASSIUM - SERUM 3.8 mmol/L (3.5-5.1); SODIUM 141 mmol/L (136-145); UREA NITROGEN 7 mg/dL (7-18); eGFR NON AFRICAN AMERICAN > 90 mL/min (90-120)
[2020-10-14 08:55] LABS: BASOPHILS 0.3 % (0-2); EOSINOPHILS 1.7 % (0-7); HEMATOCRIT 46.6 % (36.0-48.0); HEMOGLOBIN 15.6 g/dL (12-16); IMMATURE GRANULOCYTES 0.5 % (0-5); LYMPHOCYTE ABS# 1.65 10x3/uL (1.18-3.74); MCH 31.9 pg (26.0-34.0); MCHC 33.5 g/dL (31.0-37.0); MCV 95.3 fL (80.0-100.0); MEAN PLATELET VOLUME 11.1 fL (7.4-10.4); NEUTROPHIL ABS# 5.22 10x3/uL (1.56-6.13); NEUTROPHILS 69.5 % (40-80); PLATELET COUNT 187 10x3/uL (130-400); RBC 4.89 10x6/uL (4.00-5.40); RDW 12.8 % (11.5-14.5); WBC 7.5 10x3/uL (4.8-10.8)
[2020-10-14 08:56] LABS: ALBUMIN 3.3 g/dL (3.4-5.0); ALKALINE PHOSPHATASE 118 U/L (30-120); ALT (SGPT) 32 U/L (10-68); AMYLASE - SERUM 26 U/L (25-115); BILIRUBIN - TOTAL 1.11 mg/dL (0.2-1.3); CKMB 0.3 U/L (0.0-3.6); CREATINE KINASE 43 UL (21-215); LIPASE 123 U/L (73-393); MAGNESIUM - SERUM 1.7 mg/dL (1.8-2.4); PROTEIN - SERUM 7.2 g/dL (6.4-8.2); TROPONIN-I < 0.017 ng/mL (0.000-0.060)
[2020-10-14 11:52] VITALS: BP 100/66
--- NOTE | 2020-10-14 12:12 | NUR ---
PT TO ROOM FROM ER VIA WHEELCHAIR. SITTING UP IN CHAIR AT PRESENT. ASKING ABOUT EATING AND TAKING PAIN MEDS. INFORMED WOULD CHECK ON ORDERS.
[2020-10-14] MEDS ORDERED: NITROSTAT0.4 MG SL (12:25)
[2020-10-14] MEDS ORDERED: BUPROPION HCL100 MG PO (12:27)
[2020-10-14 13:12] VITALS: BP 114/82; BMI 41.3
--- NOTE | 2020-10-14 19:15 | NUR ---
PT SENT MEDS AND WALLET HOME WITH SON.
--- NOTE | 2020-10-14 19:30 | NUR ---
PT IN BED, AAO X 4, RESP EVEN AND UNLABORED, NO DISTRESS NOTED, CL IN REACH, SR UP X 2.
[2020-10-14 20:04] VITALS: BP 100/64
[2020-10-15 04:59] VITALS: BP 90/47
--- NOTE | 2020-10-15 06:18 | NUR ---
I have reviewed this patient and I concur with the Shift Assessment completed by the Licensed Practical Nurse today this shift.
[2020-10-15 06:46] LABS: ALBUMIN 2.5 g/dL (3.4-5.0); ALKALINE PHOSPHATASE 93 U/L (30-120); ALT (SGPT) 30 U/L (10-68); BILIRUBIN - TOTAL 0.65 mg/dL (0.2-1.3); CALCIUM 7.8 mg/dL (8.5-10.1); CARBON DIOXIDE 31.3 mmol/L (21.0-32.0); CHLORIDE - SERUM 103 mmol/L (98-107); CKMB 0.7 U/L (0.0-3.6); CREATINE KINASE 34 UL (21-215); MAGNESIUM - SERUM 1.7 mg/dL (1.8-2.4); POTASSIUM - SERUM 3.7 mmol/L (3.5-5.1); SODIUM 138 mmol/L (136-145); TROPONIN-I < 0.017 ng/mL (0.000-0.060); eGFR NON AFRICAN AMERICAN 81 mL/min (90-120)
[2020-10-15 06:52] LABS: BASOPHILS 0.2 % (0-2); EOSINOPHILS 3.3 % (0-7); HEMATOCRIT 37.6 % (36.0-48.0); IMMATURE GRANULOCYTES 0.5 % (0-5); LYMPHOCYTE ABS# 2.62 10x3/uL (1.18-3.74); LYMPHOCYTES 42.8 % (15-50); MCH 31.6 pg (26.0-34.0); MCHC 32.4 g/dL (31.0-37.0); MONOCYTES 7.2 % (2-11); NEUTROPHIL ABS# 2.82 10x3/uL (1.56-6.13); PLATELET COUNT 189 10x3/uL (130-400); WBC 6.1 10x3/uL (4.8-10.8)
[2020-10-15 06:54] LABS: CALC OSMOLALITY 280 mosm/kg (275-300); CREATININE - SERUM 0.8 mg/dL (0.6-1.3); GLUCOSE 213 mg/dL (74-106); UREA NITROGEN 9 mg/dL (7-18)
[2020-10-15 07:11] LABS: HEMOGLOBIN 12.2 g/dL (12-16); MCV 97.4 fL (80.0-100.0); RBC 3.86 10x6/uL (4.00-5.40)
[2020-10-15 08:29] VITALS: BP 111/82
[2020-10-15 08:57] LABS: CHOL - HDL RATIO 2.6 ratio (2.3-4.1); LDL-HDL RATIO 1.3 ratio (1.5-3.5)
[2020-10-15 12:23] VITALS: BP 139/91
[2020-10-15 12:27] VITALS: Ht 162.6 cm; Wt 108.9 kg
--- NOTE | 2020-10-15 15:43 | NUR ---
DISCHARGE INSTRUCTIONS REVIEWED AND SIGNED. IV OUT AND TELEMETRY REMOVED. SUPPOSED TO GO TO OFFICE AND KILN FIRER MONITOR. SON PICKING HER UP IN ER.
--- NOTE | 2020-10-15 17:14 | EC ---
PATIENT:RENALDO MOTA DATE OF SERVICE: 10/14/20 SEX: F MEDICAL RECORD: [id number] DATE OF : 74 LOCATION:[facility]. D.211 AGE OF PATIENT: 50 ADMISSION DATE: 10/14/20 REFERRING PHYSICIAN: INTERPRETING PHYSICIAN: LUH SALGADO MD ECHOCARDIOGRAM REPORT ECHO CHARGES 4 ECHO COMPLETE Date: 10/15/20 CLINICAL DIAGNOSIS: HYPERTENSION ECHOCARDIOGRAPHIC MEASUREMENTS (adult normal given) AC root (d.<3.7cm) 2.9 cm LV Septum d (<1.2 cm> 1.4 cm Valve Excursion 1.6 cm LV Septum (systole) 1.5 cm Left Atria (s.<4.0cm> 3.7 cm LVPW d(<1.2cm) 1.3 cm RV (d.<2.3cm) 3.4 cm LVPW (sytole) 1.7 cm LV diastole(<5.6CM) 4.9 cm MV E-F(>70mm/sec) cm LV systole 3.5 cm LVOT Diameter 1.8 cm MV exc.(>10mm) 1.9 cm Est.ejection fraction (50-75%) % DOPPLER: LVIT cm/sec A 60 cm/sec E 90 cm/sec LA cm/sec RVSP 19 mmHg LVOT 77 cm/sec AOP1/2T m/s Asc. Ao 126 cm/sec RVOT 61 cm/sec RA cm/sec PA 70 cm/sec AV Gradient Peak 6.3 mmHg AV Mean 3.3 mmHg AV Area 1.8 cm MV Gradient Peak 5.1 mmHg MV Mean 2.0 mmHg MV Area cm COMMENTS: Hemstitching Machine Operator: Linda RAMIREZMARYCRUZGEOR[facility] Platen Press Feeder: 3 Dr. Bergeron TAPE# Pericardial Effusion N DATE OF SERVICE: Adequate 2D, color-flow imaging, spectral Doppler, and M-Mode FINDINGS: LVH is present. LV internal dimensions are normal. Wall motion is normal. EF is greater than or equal to 55%. Aortic valve is tricuspid. No evidence of stenosis by Doppler interrogation. Left atrium is normal at 3.7 cm. Mitral valve shows no prolapse. Trace MR. Right side is grossly normal. Trace TR. ECHOCARDIOGRAM REPORT [id number] RENALDO MOTA TRANSINT:[id number] Voice Confirmation ID: [id number] DOCUMENT ID: [id number] LUH SALGADO MD at 1714 CC: [id number] DICTATION DATE: 10/15/20 1233 FRONT END ENGINEER: 10/15/20 1341 DIS IN 10/15/20 [id number] [place] [address]
== END 2020-10-15 15:46 | disposition home or self-care (01) ==
LOC: D.ER 05:44 → OBSVTIME 10:13 → D.M2 10:13
PROVIDERS: Family Medicine; Internal Medicine Interventional Cardiology; ADMIT Emergency Medicine; ATTEND Emergency Medicine
DX: R55 Syncope and collapse (principal); G43.909 Migraine, unspecified, not intractable, without status migrainosus; G89.29 Other chronic pain; R11.2 Nausea with vomiting, unspecified; E11.9 Type 2 diabetes mellitus without complications; I10 Essential (primary) hypertension; E78.5 Hyperlipidemia, unspecified; K21.9 Gastro-esophageal reflux disease without esophagitis

== ENCOUNTER 2020-11-23 07:37 | Emergency (ER) | payer BC ==
[~2020-11-23] VITALS: Ht 162.6 cm; Wt 109.1 kg
[~2020-11-23 07:37] MED LIST changes: +BUPROPION HCL100 MG PO; +GLUCOPHAGE500 MG PO; +NITROSTAT0.4 MG SL
[2020-11-23 07:47] VITALS: Ht 162.6 cm; Wt 109.1 kg
[2020-11-23 09:07] VITALS: BP 147/97
== END 2020-11-23 09:09 | disposition home or self-care (01) ==
LOC: D.ER 07:37
DX: G43.909 Migraine, unspecified, not intractable, without status migrainosus (principal); E11.9 Type 2 diabetes mellitus without complications; I10 Essential (primary) hypertension; K21.9 Gastro-esophageal reflux disease without esophagitis; Z79.84 Long term (current) use of oral hypoglycemic drugs

== ENCOUNTER 2020-12-05 10:01 | Emergency (ER) | payer BC ==
[~2020-12-05] VITALS: Ht 162.6 cm; Wt 110.0 kg
[2020-12-05 10:03] VITALS: BP 112/64; Ht 162.6 cm; Wt 110.0 kg
[2020-12-05 10:41] LABS: BASOPHILS 0.5 % (0-2); EOSINOPHILS 1.7 % (0-7); HEMATOCRIT 39.9 % (36.0-48.0); HEMOGLOBIN 13.6 g/dL (12-16); LYMPHOCYTES 29.7 % (15-50); MCH 31.6 pg (26.0-34.0); MCHC 34.1 g/dL (31.0-37.0); MCV 92.6 fL (80.0-100.0); MEAN PLATELET VOLUME 8.4 fL (7.4-10.4); MONOCYTES 7.2 % (2-11); NEUTROPHILS 60.9 % (40-80); PLATELET COUNT 209 10x3/uL (130-400); RBC 4.31 10x6/uL (4.00-5.40); RDW 13.2 % (11.5-14.5)
[2020-12-05 10:52] LABS: ANION GAP 12.7 mmol/L (8-16); CALCIUM 8.6 mg/dL (8.5-10.1); CARBON DIOXIDE 29.3 mmol/L (21.0-32.0); CREATININE - SERUM 0.9 mg/dL (0.6-1.3)
[2020-12-05 10:57] LABS: ALBUMIN 3.2 g/dL (3.4-5.0); BILIRUBIN - TOTAL 0.46 mg/dL (0.2-1.3); PROTEIN - SERUM 7.1 g/dL (6.4-8.2)
== END 2020-12-05 12:56 | disposition home or self-care (01) ==
LOC: D.ER 10:01
PROVIDERS: Family Medicine
DX: R06.02 Shortness of breath (principal); T39.395A Adverse effect of other nonsteroidal anti-inflammatory drugs [NSAID], initial encounter; R20.0 Anesthesia of skin; E11.9 Type 2 diabetes mellitus without complications; I10 Essential (primary) hypertension; I25.2 Old myocardial infarction; J45.909 Unspecified asthma, uncomplicated; K21.9 Gastro-esophageal reflux disease without esophagitis; Z79.84 Long term (current) use of oral hypoglycemic drugs

== ENCOUNTER 2021-01-02 00:09 | Emergency (ER) | payer BC ==
[~2021-01-02] VITALS: Ht 162.6 cm; Wt 109.1 kg
[2021-01-02 00:14] VITALS: Ht 162.6 cm; Wt 109.1 kg
[2021-01-02 01:05] LABS: BASOPHILS 0.7 % (0-2); EOSINOPHILS 2.9 % (0-7); HEMATOCRIT 44.1 % (36.0-48.0); HEMOGLOBIN 14.5 g/dL (12-16); LYMPHOCYTES 39.8 % (15-50); MCH 31.5 pg (26.0-34.0); MCHC 32.9 g/dL (31.0-37.0); MCV 95.8 fL (80.0-100.0); MEAN PLATELET VOLUME 8.5 fL (7.4-10.4); NEUTROPHILS 49.6 % (40-80); PLATELET COUNT 198 10x3/uL (130-400); RDW 13.9 % (11.5-14.5); WBC 7.5 10x3/uL (4.8-10.8)
[2021-01-02 01:21] LABS: CALC OSMOLALITY 284 mosm/kg (275-300); CALCIUM 8.9 mg/dL (8.5-10.1); CARBON DIOXIDE 28.7 mmol/L (21.0-32.0); CHLORIDE - SERUM 103 mmol/L (98-107); CREATININE - SERUM 0.8 mg/dL (0.6-1.3); POTASSIUM - SERUM 3.3 mmol/L (3.5-5.1); SODIUM 141 mmol/L (136-145); UREA NITROGEN 10 mg/dL (7-18); eGFR NON AFRICAN AMERICAN 81 mL/min (90-120)
[2021-01-02 01:22] LABS: GLUCOSE 186 mg/dL (74-106)
[2021-01-02 01:24] LABS: ALBUMIN 3.5 g/dL (3.4-5.0); ALKALINE PHOSPHATASE 108 U/L (30-120); ALT (SGPT) 39 U/L (10-68); BILIRUBIN - TOTAL 0.79 mg/dL (0.2-1.3); PROTEIN - SERUM 7.2 g/dL (6.4-8.2)
[2021-01-02 04:43] VITALS: BP 144/80
== END 2021-01-02 04:43 | disposition home or self-care (01) ==
LOC: D.ER 00:09
PROVIDERS: Family Medicine
DX: M54.2 Cervicalgia (principal); G89.29 Other chronic pain; E11.9 Type 2 diabetes mellitus without complications; I10 Essential (primary) hypertension; J45.909 Unspecified asthma, uncomplicated; K21.9 Gastro-esophageal reflux disease without esophagitis; I25.2 Old myocardial infarction; Z79.84 Long term (current) use of oral hypoglycemic drugs; R11.0 Nausea